=== PATIENT | female | born 1965 | race Caucasian/White ===

== ENCOUNTER → 2024-11-16 10:02 | Outpatient (REF) | payer OTHER, SELFPAY | LOC: HWWDC 10:02 | PROVIDERS: ATTENDING PHYSICIAN Student in an Organized Health Care Education/Training Program; FAMILY PHYSICIAN Family Medicine | DX: Z12.31 Encounter for screening mammogram for malignant neoplasm of breast (principal) | CPT/HCPCS: 77063; 77067 ==